=== PATIENT | female | born 1975 | race Caucasian/White ===

== ENCOUNTER 2017-09-30 23:29 | Emergency (ER) | payer OTHER, MEDICAID ==
[~2017-09-30] VITALS: Ht 180.3 cm; Wt 79.4 kg
[2017-10-01] MEDS ORDERED: NORCO 5-325 TA1 EAC1 PO (00:26)
[2017-10-01 00:37] VITALS: BP 133/77
== END 2017-10-01 00:37 | disposition home or self-care (01) ==
LOC: M.ERS 23:29
DX: S60.222A Contusion of left hand, initial encounter (principal); F32.9 Major depressive disorder, single episode, unspecified; F10.99 Alcohol use, unspecified with unspecified alcohol-induced disorder; Z88.2 Allergy status to sulfonamides; Z88.0 Allergy status to penicillin; Z88.1 Allergy status to other antibiotic agents; Y04.2XXA Assault by strike against or bumped into by another person, initial encounter; Y93.89 Activity, other specified; Y92.89 Other specified places as the place of occurrence of the external cause; Y99.8 Other external cause status

== ENCOUNTER 2018-04-25 13:44 | Emergency (ER) | payer OTHER, MEDICAID ==
[~2018-04-25] VITALS: Ht 154.9 cm; Wt 79.4 kg
[~2018-04-25 13:44] MED LIST: NORCO 5-325 TA1 EAC1 PO
[2018-04-25] MEDS ORDERED: TRAZODONE HCL50 MG PO (14:06)
[2018-04-25] MEDS ORDERED: MINIPRESS5 MG PO (14:07)
[2018-04-25] MEDS ORDERED: BUSPIRONE HCL10 MG PO (14:07)
[2018-04-25] MEDS ORDERED: LATUDA40 MG PO (14:07)
[2018-04-25] MEDS ORDERED: HYDROXYZINE HCL25 M1 PO (14:08)
[2018-04-25 14:32] LABS: ABSOLUTE BASOPHILS 0.2 thou/uL (0.0-0.2); ABSOLUTE EOSINOPHILS 0.2 thou/uL (0.0-0.7); ABSOLUTE LYMPHOCYTES 2.9 thou/uL (0.8-5.3); ABSOLUTE MONOCYTES 0.8 thou/uL (0.0-1.2); ABSOLUTE NEUTROPHILS 5.9 thou/uL (1.6-8.1); BASOPHILS 1.6 %; HEMOGLOBIN 13.3 gm/dL (12.0-15.0); LYMPHOCYTES 29.4 %; MCH 32.4 pg (26.0-34.0); MCHC 34.1 g/dL (28.0-37.0); MCV 95.1 fL (80.0-100.0); MONOCYTES 7.7 %; MPV 8.1 fl. (7.2-11.1); NUCLEATED RBCS 0 /100WBC; PLATELET COUNT* 259 thou/uL (150-400); POLYS 59.3 %; RDW-CV 13.4 % (10.5-14.5); WBC 9.9 thou/uL (4.0-11.0)
[2018-04-25 14:39] LABS: ANION GAP 9 mmol/L (7-16); BUN 13 mg/dL (7-18); CALCIUM 8.6 mg/dL (8.5-10.1); CHLORIDE 104 mmol/L (98-107); CO2 27 mmol/L (21-32); CREATININE 0.8 mg/dL (0.6-1.3); GLUCOSE 109 mg/dL (70-99); POTASSIUM 3.6 mmol/L (3.5-5.1); SODIUM 140 mmol/L (136-145)
[2018-04-25 14:46] LABS: ALKALINE PHOSPHATASE 42 U/L (46-116); SGOT 21 U/L (15-37); SGPT 28 U/L (30-65); TOTAL BILIRUBIN 0.5 mg/dL (<0.1-1.0); TOTAL PROTEIN 7.2 g/dL (6.4-8.2); TROPONIN-I LEVEL <0.06 ng/mL (<0.06)
[2018-04-25] MEDS ORDERED: NORCO 5-325 TA1 EACH PO (15:00)
[2018-04-25 15:16] VITALS: BP 105/51
--- NOTE | 2018-04-26 13:01 | EKG ---
[place] [address] ELECTROCARDIOGRAM REPORT Name: JULIANN RAMSAY [facility] [id number] Admission: 04/25/18 Attend Phys: Discharge: 04/25/18 Date of : 77 Report #: [id number] THIS REPORT FOR: //name// [facility] ED Test Date: 2018-04-25 Test Time: 15:10:32 Pat Name: JULIANN RAMSYA Department: Room: Gender: F Process Improvement Specialist: AMY : 1975 Requested By: Camila Toth Order Number: [id number] MD: Elie Parra Measurements Intervals [employer] Rate: 61 P: 46 KS: 136 QRS: 60 QRSD: 92 T: 43 QT: 418 QTc: 421 Interpretive Statements Sinus rhythm No previous ECG available for comparison Electronically Signed On 04-26-2018 13:00:55 CDT by Elie Parra [email or web address] <ELECTRONICALLY SIGNED> By: Elie Parra MD, [facility] 04/26/18 1300 1510 1510 Elie Parra MD, FACC /EPI
== END 2018-04-25 15:18 | disposition home or self-care (01) ==
LOC: M.ERS 13:44
PROVIDERS: Nurse Practitioner Family
DX: N60.01 Solitary cyst of right breast (principal); F31.9 Bipolar disorder, unspecified; Z88.2 Allergy status to sulfonamides; Z88.1 Allergy status to other antibiotic agents; Z88.0 Allergy status to penicillin

== ENCOUNTER 2019-10-25 08:26 | Emergency (ER) | payer OTHER, MEDICAID ==
[~2019-10-25] VITALS: Ht 180.3 cm; Wt 81.7 kg
[~2019-10-25 08:26] MED LIST changes: +BENTYL 20 MG TA20 M1 PO; +BUSPAR30 MG PO; +BUSPIRONE HCL10 MG PO; +HYDROXYZINE HCL25 M1 PO; +LATUDA20 MG PO; +LATUDA40 MG PO; +MINIPRESS5 MG PO; +NORCO 5-325 TA1 EACH PO; +PRAZOSIN 1 MG CA1 M1 PO; +TRAZODONE HCL50 MG PO; +XANAX 0.5 MG0.5 MG PO; +ZOFRAN ODT4 MG DISSOLVE
[2019-10-25 09:07] LABS: URINE BILIRUBIN NEGATIVE (Negative); URINE BLOOD NEGATIVE (Negative); URINE CLARITY CLEAR; URINE COLOR YELLOW; URINE GLUCOSE-RANDOM NEGATIVE (Negative); URINE KETONES NEGATIVE (Negative); URINE LEUKOCYTES-REFLEX NEGATIVE (Negative); URINE NITRITE-REFLEX NEGATIVE (Negative); URINE PROTEIN NEGATIVE (Negative); URINE UROBILINOGEN 0.2 E.U./dl (0.2-1.0)
[2019-10-25 09:08] LABS: ABSOLUTE BASOPHILS 0.1 thou/uL (0.0-0.2); ABSOLUTE EOSINOPHILS 0.1 thou/uL (0.0-0.7); ABSOLUTE LYMPHOCYTES 2.6 thou/uL (0.8-5.3); ABSOLUTE MONOCYTES 0.7 thou/uL (0.0-1.2); BASOPHILS 1.2 %; EOSINOPHILS 0.6 %; HEMATOCRIT 39.5 % (37.0-47.0); HEMOGLOBIN 13.8 gm/dL (12.0-15.0); LYMPHOCYTES 25.1 %; MCH 32.1 pg (26.0-34.0); MCHC 34.9 g/dL (28.0-37.0); MONOCYTES 6.4 %; MPV 7.7 fl. (7.2-11.1); NUCLEATED RBCS 0 /100WBC; PLATELET COUNT* 256 thou/uL (150-400); POLYS 66.7 %; RDW-CV 14.3 % (10.5-14.5); WBC 10.5 thou/uL (4.0-11.0)
[2019-10-25 09:31] LABS: CALCIUM 8.5 mg/dL (8.5-10.1); CREATININE 0.5 mg/dL (0.6-1.3); POTASSIUM 3.8 mmol/L (3.5-5.1)
[2019-10-25 09:35] LABS: ALBUMIN 3.9 g/dL (3.4-5.0); TOTAL BILIRUBIN 0.5 mg/dL (<0.1-1.0); TOTAL PROTEIN 7.2 g/dL (6.4-8.2)
[2019-10-25] MEDS ORDERED: HYDROCODON-ACE1 EAC7 PO (09:45)
[2019-10-25] MEDS ORDERED: ZOFRAN ODT4 MG PO (10:13)
[2019-10-25 10:34] VITALS: BP 110/57
== END 2019-10-25 10:58 | disposition home or self-care (01) ==
LOC: M.ERS 08:26
PROVIDERS: Emergency Medicine
DX: R19.7 Diarrhea, unspecified (principal); R10.84 Generalized abdominal pain; F17.210 Nicotine dependence, cigarettes, uncomplicated; Z88.1 Allergy status to other antibiotic agents; Z88.0 Allergy status to penicillin; Z88.2 Allergy status to sulfonamides; Z90.49 Acquired absence of other specified parts of digestive tract; Z90.710 Acquired absence of both cervix and uterus

== ENCOUNTER 2021-02-01 14:41 | Emergency (ER) | payer OTHER, MEDICAID ==
[~2021-02-01] VITALS: Ht 177.8 cm; Wt 77.1 kg
[~2021-02-01 14:41] MED LIST changes: +HYDROCODON-ACE1 EAC7 PO; +ZOFRAN ODT4 MG PO
[2021-02-01 15:34] VITALS: BP 128/78
== END 2021-02-01 15:35 | disposition home or self-care (01) ==
LOC: M.ERS 14:41
DX: S61.213A Laceration without foreign body of left middle finger without damage to nail, initial encounter (principal); F17.210 Nicotine dependence, cigarettes, uncomplicated; Z90.49 Acquired absence of other specified parts of digestive tract; Z90.710 Acquired absence of both cervix and uterus; Z87.442 Personal history of urinary calculi; Z88.1 Allergy status to other antibiotic agents; Z88.0 Allergy status to penicillin; Z88.2 Allergy status to sulfonamides; W26.8XXA Contact with other sharp object(s), not elsewhere classified, initial encounter; Y93.89 Activity, other specified; Y92.89 Other specified places as the place of occurrence of the external cause; Y99.8 Other external cause status

== ENCOUNTER 2021-02-09 17:05 | Emergency (ER) | payer OTHER, MEDICAID ==
[~2021-02-09] VITALS: Ht 180.3 cm; Wt 77.1 kg
[2021-02-09] MEDS ORDERED: MEDROLDOSEPACK PO (18:25)
[2021-02-09] MEDS ORDERED: PROAIR HFA8.5 GM INH (18:25)
[2021-02-09 18:56] VITALS: BP 101/54
== END 2021-02-09 18:56 | disposition home or self-care (01) ==
LOC: M.ERS 17:05
DX: J06.9 Acute upper respiratory infection, unspecified (principal); Z20.822 Contact with and (suspected) exposure to COVID-19; Z88.1 Allergy status to other antibiotic agents; Z88.2 Allergy status to sulfonamides; Z88.0 Allergy status to penicillin; Z90.49 Acquired absence of other specified parts of digestive tract; Z87.442 Personal history of urinary calculi; Z90.710 Acquired absence of both cervix and uterus